=== PATIENT | male | born 1975 | race Caucasian/White ===

== ENCOUNTER 2021-11-12 19:14 | Inpatient (IN) ==
[2021-11-12] MEDS ORDERED: Iopamidol - 370 500 ML MLS IVP ONE (22:02)
[2021-11-12] MEDS ORDERED: Piperacillin/Tazobactam 3.375 GM in 0.9 % Sodium Chloride Mini Bag 100 ML IVPB ONE (22:03)
[2021-11-12] MEDS ORDERED: Vancomycin 2,000 MG/520 ML IV.SOLN IVPB ONE (22:30)
[2021-11-12 22:32] LABS: Basophils # 0.1 K/mcL (0.0-0.2); Basophils % 0.9 %; Eosinophils # 0.1 K/mcL (0.0-0.6); Eosinophils % 1.6 %; Hematocrit 43.6 % (37.5-50.1); Hemoglobin 14.9 g/dL (12.9-16.9); Immature Granulocytes % 2.8 % (0-4); Lymphocytes % 13.2 %; Mean Corpuscular HGB Conc 34.2 g/dL (31.6-35.5); Mean Corpuscular Hemoglobin 30.5 pg (28.0-33.3); Mean Corpuscular Volume 89.2 fL (83.0-100.0); Mean Platelet Volume 10.2 fL (9.4-12.4); Monocytes # 0.8 K/mcL (0.0-1.3); Neutrophils # 5.4 K/mcL (1.6-8.9); Platelet Count 206 K/mcL (140-400); Red Blood Count 4.89 M/mcL (4.19-5.50); Red Cell Distribution Width 13.2 % (11.5-14.5); Segmented Neutrophils % 70.5 %; White Blood Count 7.6 K/mcL (4.3-11.1)
[2021-11-12 22:51] LABS: BUN/Creatinine Ratio 13 (6-26); Blood Urea Nitrogen 13 mg/dL (6-20); Calcium 9.1 mg/dL (8.6-10.3); Carbon Dioxide 22 mEq/L (23-29); Chloride 104 mEq/L (98-107); Creatine Kinase 31 Units/L (30-223); Glucose 109 mg/dL (70-105); Osmolality,Calculated 281 (280-300); Potassium 3.3 mEq/L (3.5-5.1); Sodium 135 mEq/L (136-145); eGFR For African Americans > 60 (> 60); eGFR For Non-African Americans > 60 (> 60)
[2021-11-12] MEDS ORDERED: Potassium Effervescent 25 MEQ TABLET.EFF PO ONE (22:58)
[2021-11-13] MEDS ORDERED: *HR* Promethazine 25 MG/ML VIAL IM PRN (01:34)
[2021-11-13] MEDS ORDERED: *HR* HYDROcodone/Acet 5/325 mg TABLET PO PRN (01:34)
[2021-11-13] MEDS ORDERED: Melatonin 3 MG TABLET PO PRN (01:34)
[2021-11-13] MEDS ORDERED: Ondansetron 4 MG/2 ML VIAL IVP PRN (01:34)
[2021-11-13] MEDS ORDERED: Naloxone 0.4 MG/ML INJ IVP PRN (01:34)
[2021-11-13] MEDS ORDERED: *HR* Rivaroxaban 15 MG TABLET PO SCH (02:30)
[2021-11-13 02:59] LABS: C-Reactive Protein 166 mg/L (Less than 10)
[2021-11-13 07:59] LABS: Basophils # 0.1 K/mcL (0.0-0.2); Basophils % 1.1 %; Eosinophils # 0.2 K/mcL (0.0-0.6); Eosinophils % 2.4 %; Hematocrit 49.1 % (37.5-50.1); Hemoglobin 16.3 g/dL (12.9-16.9); Immature Granulocytes % 4.7 % (0-4); Lymphocytes # 0.8 K/mcL (0.6-4.6); Lymphocytes % 10.1 %; Mean Corpuscular HGB Conc 33.2 g/dL (31.6-35.5); Mean Corpuscular Hemoglobin 30.1 pg (28.0-33.3); Mean Corpuscular Volume 90.6 fL (83.0-100.0); Mean Platelet Volume 9.9 fL (9.4-12.4); Monocytes # 0.7 K/mcL (0.0-1.3); Monocytes % 9.1 %; Neutrophils # 5.8 K/mcL (1.6-8.9); Platelet Count 182 K/mcL (140-400); Red Blood Count 5.42 M/mcL (4.19-5.50); Red Cell Distribution Width 13.4 % (11.5-14.5); Segmented Neutrophils % 72.6 %
[2021-11-13 08:18] LABS: BUN/Creatinine Ratio 18 (6-26); Blood Urea Nitrogen 15 mg/dL (6-20); Carbon Dioxide 25 mEq/L (23-29); Chloride 105 mEq/L (98-107); Glucose 88 mg/dL (70-105); Osmolality,Calculated 284 (280-300); Potassium 3.9 mEq/L (3.5-5.1); Sodium 137 mEq/L (136-145); eGFR For African Americans > 60 (> 60); eGFR For Non-African Americans > 60 (> 60)
[2021-11-13 08:26] LABS: INR 1.7; Prothrombin Time 18.8 Seconds (9.4-12.1)
[2021-11-13] MEDS: cefTRIAXone 1,000 MG in 0.9 % Sodium Chloride 10 ML IVP SCH (09:07)
[2021-11-13] MEDS: Vancomycin 1,500 MG/265 ML IV.SOLN IVPB SCH (15:10)
[2021-11-13] MEDS: *HR* OxyCODONE Immed Rel 5 MG TABLET PO PRN ×2 (15:18→23:25)
[2021-11-13] MEDS: *HR* Rivaroxaban 15 MG TABLET PO SCH (20:07)
[2021-11-14] MEDS: Vancomycin 1,500 MG/265 ML IV.SOLN IVPB SCH ×2 (02:13→14:07)
[2021-11-14] MEDS: Acetaminophen 325 MG TABLET PO PRN (03:45)
[2021-11-14] MEDS: cefTRIAXone 1,000 MG in 0.9 % Sodium Chloride 10 ML IVP SCH (09:15)
[2021-11-14] MEDS: *HR* Rivaroxaban 15 MG TABLET PO SCH ×2 (09:15→21:02)
[2021-11-14] MEDS: amLODIPine 5 MG TABLET PO SCH (09:15)
[2021-11-14] MEDS ORDERED: Acetaminophen/Butalbital/CaffeineTABLET PO PRN (14:13)
[2021-11-15] MEDS ORDERED: Vancomycin 2,000 MG/520 ML IV.SOLN IVPB SCH (03:00)
[2021-11-15] MEDS: Acetaminophen 325 MG TABLET PO PRN ×2 (05:41→16:51)
[2021-11-15] MEDS: cefTRIAXone 1,000 MG in 0.9 % Sodium Chloride 10 ML IVP SCH (10:03)
[2021-11-15] MEDS: *HR* Rivaroxaban 15 MG TABLET PO SCH ×2 (10:03→20:25)
[2021-11-15] MEDS: amLODIPine 5 MG TABLET PO SCH (10:03)
[2021-11-15] MEDS: *HR* OxyCODONE Immed Rel 5 MG TABLET PO PRN (18:09)
[2021-11-16 04:14] LABS: BUN/Creatinine Ratio 13 (6-26); Blood Urea Nitrogen 12 mg/dL (6-20); C-Reactive Protein 166 mg/L (Less than 10); Calcium 8.7 mg/dL (8.6-10.3); Carbon Dioxide 27 mEq/L (23-29); Chloride 101 mEq/L (98-107); Glucose 111 mg/dL (70-105); Osmolality,Calculated 284 (280-300); Sodium 137 mEq/L (136-145); eGFR For African Americans > 60 (> 60); eGFR For Non-African Americans > 60 (> 60)
[2021-11-16] MEDS: Vancomycin 1,500 MG/265 ML IV.SOLN IVPB SCH (07:09)
[2021-11-16 07:56] VITALS: BP 166/95; PULSE 91; TEMP 97.6; O2SAT 92
[2021-11-16] MEDS: *HR* Rivaroxaban 15 MG TABLET PO SCH (08:25)
[2021-11-16] MEDS: amLODIPine 5 MG TABLET PO SCH (08:25)
[2021-11-16] MEDS: cefTRIAXone 1,000 MG in 0.9 % Sodium Chloride 10 ML IVP SCH (08:25)
== END 2021-11-16 12:15 | disposition home or self-care (01) | DRG 603 ==
LOC: EMEROOARM 19:14 → 4WAOSI 19:14 → SUATTDRO 11-13 01:31 → 4WAOSI 11-13 02:11 → 2ANU 11-13 18:37 → SUATTDRO 11-14 14:00
PROVIDERS: ADMIT Internal Medicine; ATTEND Family Medicine